=== PATIENT | male | born 1980 | race Caucasian/White ===

== ENCOUNTER 2017-05-27 06:43 | Emergency (ER) | payer OTHER ==
[~2017-05-27 06:43] MED LIST: ALPRAZOLAM PO; FLONASE16 GM; LORTAB 2.5/5001 TAB PO; NORCO 5/325 TAB1 TAB PO; ZITHROMAX PO; ZYRTEC PO
[2017-05-27] MEDS ORDERED: NO MEDICATIONS (06:51)
[2017-05-27] MEDS ORDERED: ALPRAZOLAM PO (06:53)
== END 2017-05-27 07:25 | disposition home or self-care (01) ==
LOC: SED 06:43
DX: J01.01 Acute recurrent maxillary sinusitis (principal); F41.9 Anxiety disorder, unspecified; Z79.899 Other long term (current) drug therapy; Z88.0 Allergy status to penicillin
CPT/HCPCS: 99283